=== PATIENT | female | born 1995 | race Two or more races ===

== ENCOUNTER 2021-07-20 12:31 | Inpatient (IN) | payer MEDICAID ==
[~2021-07-20] VITALS: Ht 157.5 cm; Wt 73.0 kg
[~2021-07-20 12:31] MED LIST: PREN-145 OR
[2021-07-20 13:03] LABS: Urine Bacteria MOD /hpf (None Seen); Urine Blood 3+ /uL (Negative); Urine Specific Gravity 1.014 (1.001-1.035); Urine WBC 458 /hpf (0 - 5); Urine WBC Clumps PRESENT /hpf (None Seen)
[2021-07-20] MEDS ORDERED: cefTRIAXone 1GM/50ML D5W 50 ML IV ONE ×2 (13:15→19:15)
[2021-07-20] MEDS ORDERED: MORPHINE SULFATE INJECTION 2 MG/ML SYRG IV ONE (13:15)
[2021-07-20] MEDS ORDERED: ONDANSETRON HCL 4 MG/2 ML VIAL IV ONE (13:15)
[2021-07-20 13:21] LABS: Basophils # (auto) 0.1 10 ^3/uL (0-0.2); Basophils % (auto) 0.9 % (0.0-2.0); Eosinophils # (auto) 0.1 10 ^3/uL (0-0.8); Eosinophils % (auto) 0.5 % (0.0-7.0); Hematocrit 35.3 % (36.0-46.0); Hemoglobin 11.6 g/dL (12.2-16.2); Lymphocytes # (auto) 1.3 10 ^3/uL (0.4-5.4); Lymphocytes % (auto) 11.7 % (10.0-50.0); Mean Corpuscular Hemoglobin 24.5 pg (28.0-32.0); Mean Corpuscular Volume 74.2 fL (80.0-100.0); Monocytes # (auto) 1.1 10 ^3/uL (0-1.3); Monocytes % (auto) 9.5 % (0.0-12.0); Neutrophils # (auto) 8.7 10 ^3/uL (1.6-8.6); Neutrophils % (auto) 77.4 % (37.0-80.0); Nucleated Red Blood Cells % 0.1 %; Red Blood Cells 4.76 10^6/uL (4.0-5.20); Red Cell Distribution Width 17.3 % (11.8-14.3); White Blood Cell 11.2 10^3/uL (4.4-10.8)
[2021-07-20 13:42] LABS: Potassium 3.5 mmol/L (3.5-5.1)
[2021-07-20 13:48] LABS: BUN/Creatinine Ratio 14.1; Bilirubin, Total 0.4 mg/dL (0.2-1.0); Total Protein 8.4 g/dL (6.4-8.2)
[2021-07-20] MEDS ORDERED: SODIUM CHLORIDE 0.9% 1,000 ML IV ONE (14:00)
[2021-07-20] MEDS ORDERED: ACETAMINOPHEN 500 MG TAB PO ONE (16:15)
[2021-07-20] MEDS ORDERED: MORPHINE SULFATE INJECTION 2 MG/ML SYRG IV PRN ×2 (16:30→19:15)
[2021-07-20] MEDS ORDERED: NITROGLYCERIN 0.4 MG SL TAB SL PRN ×2 (16:30→19:15)
[2021-07-20] MEDS ORDERED: LACTATED RINGER'S 1,000 ML IV ONE (16:30)
[2021-07-20] MEDS ORDERED: MORPHINE SULFATE 4 MG/ML SYR/VIAL IV PRN (19:15)
[2021-07-20] MEDS ORDERED: KETOROLAC TROMETH 30 MG/ML 1ML VIAL IV PRN (19:15)
[2021-07-20] MEDS ORDERED: ALUM & MAG HYDROX-SIMETH LIQ(MAALOX) 30 ML PO PRN (19:15)
[2021-07-20] MEDS ORDERED: ONDANSETRON HCL 4 MG/2 ML VIAL IV PRN (19:15)
[2021-07-20] MEDS ORDERED: LORazepam 0.5 MG TAB PO PRN (19:15)
[2021-07-20] MEDS ORDERED: PANTOPRAZOLE 40 MG/10 ML VIAL INJ IV ONE (19:15)
[2021-07-20 21:00] LABS: Alcohol, Urine < 3.0 mg/dL (0-10); Amphetamine Screen, Urine NEGATIVE (NEGATIVE); Barbiturate Scree,Urine NEGATIVE (NEGATIVE); Benzodiazephine Screen, Urine NEGATIVE (NEGATIVE); Cannabinoid Screen, Urine NEGATIVE (NEGATIVE); Cocaine Screen, Urine NEGATIVE (NEGATIVE); Opiate Scree,Urine NEGATIVE (NEGATIVE); Phencyclidine Screen, Urine NEGATIVE (NEGATIVE)
[2021-07-20] MEDS: SODIUM CHLORIDE 0.9% 1,000 ML IV SCH (21:08)
[2021-07-21] VITALS (7 sets, daily range): BP systolic 107–125; BP diastolic 58–79
[2021-07-21 00:30] LABS: Lactic Acid w/Reflex 3.4 mmol/L (0.4-2.0)
[2021-07-21 02:04] LABS: % Iron Saturation 3.4 % (15-50)
[2021-07-21] MEDS: HYDROcodone-ACET 5/325MG TAB PO PRN (02:39)
[2021-07-21] MEDS: ACETAMINOPHEN 325 MG TAB PO PRN ×2 (02:39→16:35)
[2021-07-21] MEDS ORDERED: dilTIAZem 120MG ER CAP PO ONE (03:15)
[2021-07-21] MEDS: SODIUM CHLORIDE 0.9% 1,000 ML IV SCH ×3 (03:29→15:47)
[2021-07-21 05:47] LABS: Basophils # (auto) 0 10 ^3/uL (0-0.2); Eosinophils # (auto) 0 10 ^3/uL (0-0.8); Monocytes # (auto) 1.2 10 ^3/uL (0-1.3)
[2021-07-21 05:50] LABS: Basophils % (auto) 0.4 % (0.0-2.0); Eosinophils % (auto) 0.5 % (0.0-7.0); Hematocrit 32.9 % (36.0-46.0); Hemoglobin 10.6 g/dL (12.2-16.2); Lymphocytes # (auto) 1.5 10 ^3/uL (0.4-5.4); Lymphocytes % (auto) 16.2 % (10.0-50.0); Mean Corpuscular Hemoglobin 24.1 pg (28.0-32.0); Mean Corpuscular Hgb Conc. 32.3 g/dL (32.0-36.0); Mean Corpuscular Volume 74.6 fL (80.0-100.0); Monocytes % (auto) 13.1 % (0.0-12.0); Neutrophils # (auto) 6.3 10 ^3/uL (1.6-8.6); Neutrophils % (auto) 69.8 % (37.0-80.0); Nucleated Red Blood Cells % 0.1 %; Red Blood Cells 4.41 10^6/uL (4.0-5.20)
[2021-07-21 06:05] LABS: Albumin 3.2 g/dL (3.4-5.0); Anion Gap 5 (5-15); Blood Urea Nitrogen 7 mg/dL (7-18); Calcium 8.2 mg/dL (8.5-10.1); Carbon Dioxide 24 mmol/L (21-32); Chloride 106 mmol/L (98-107); Glucose 97 mg/dL (74-106); Magnesium 2.1 mg/dL (1.6-2.6); Potassium 3.3 mmol/L (3.5-5.1); Sodium 135 mmol/L (136-145)
[2021-07-21 06:12] LABS: INR 1.32 (0.9-1.15); Partial Thromboplastin Time 33.3 sec (23.6-33.0)
[2021-07-21 06:14] LABS: Alanine Aminotransferase 17 U/L (13-56); Alkaline Phosphatase 87 U/L (45-117); Aspartate Aminotransferase 7 U/L (15-37); BUN/Creatinine Ratio 8.4; Bilirubin, Total 0.4 mg/dL (0.2-1.0); GFR African American 105 mL/min; GFR Non-African American 87 mL/min; Phosphorus 2.4 mg/dL (2.5-4.90); Total Protein 6.8 g/dL (6.4-8.2)
[2021-07-21] MEDS: CEFTRIAXONE SODIUM 2 GM in D5W 5% 50 ML IV SCH (10:26)
[2021-07-21] MEDS: PANTOPRAZOLE 40 MG/10 ML VIAL INJ IV SCH (10:26)
[2021-07-21] MEDS: ENOXAPARIN SOD 40 MG/0.4 ML SYRINGE SC SCH (10:27)
[2021-07-21] MEDS ORDERED: POTASSIUM CHL 20 Meq TABLET PO ONE (12:30)
[2021-07-21] MEDS: TAMSULOSIN HYDROCHLORIDE 0.4 MG CAP PO SCH (18:36)
[2021-07-22] MEDS: SODIUM CHLORIDE 0.9% 1,000 ML IV SCH ×3 (00:45→17:39)
[2021-07-22 05:00] VITALS: BP 125/74
[2021-07-22 06:15] LABS: Basophils # (auto) 0.1 10 ^3/uL (0-0.2); Eosinophils # (auto) 0.2 10 ^3/uL (0-0.8); Monocytes # (auto) 1.1 10 ^3/uL (0-1.3); Monocytes % (auto) 13.6 % (0.0-12.0); Neutrophils # (auto) 4.9 10 ^3/uL (1.6-8.6); Red Cell Distribution Width 16.9 % (11.8-14.3)
[2021-07-22 06:16] LABS: Basophils % (auto) 0.8 % (0.0-2.0); Hematocrit 34.4 % (36.0-46.0); Hemoglobin 11.3 g/dL (12.2-16.2); Lymphocytes # (auto) 1.7 10 ^3/uL (0.4-5.4); Lymphocytes % (auto) 21.7 % (10.0-50.0); Mean Corpuscular Hemoglobin 24.5 pg (28.0-32.0); Mean Corpuscular Hgb Conc. 32.7 g/dL (32.0-36.0); Mean Corpuscular Volume 74.9 fL (80.0-100.0); Neutrophils % (auto) 60.9 % (37.0-80.0); Nucleated Red Blood Cells % 0.2 %
[2021-07-22 06:30] LABS: INR 1.21 (0.9-1.15); Partial Thromboplastin Time 31.7 sec (23.6-33.0)
[2021-07-22 06:35] LABS: BUN/Creatinine Ratio 11.5; Calcium 8.8 mg/dL (8.5-10.1); Magnesium 2.3 mg/dL (1.6-2.6); Potassium 3.6 mmol/L (3.5-5.1)
[2021-07-22] MEDS ORDERED: IODIXANOL 320MG/ML 100ML BTL IV ONE (09:26)
[2021-07-22] MEDS ORDERED: LIDOCAINE 2%HCL (LOCAL ANESTH.) INJ 20ML MDV ONE ×2 (09:26→10:20)
[2021-07-22] MEDS ORDERED: MIDAZOLAM HCL 2MG/2ML 2ml VIAL (1mg/ml) ONE (09:27)
[2021-07-22] MEDS ORDERED: fentaNYL CITRATE 100 MCG/2 ML VL ONE (09:27)
[2021-07-22] MEDS: PANTOPRAZOLE 40 MG/10 ML VIAL INJ IV SCH (09:57)
[2021-07-22] MEDS: CEFTRIAXONE SODIUM 2 GM in D5W 5% 50 ML IV SCH (09:57)
[2021-07-22] MEDS: ENOXAPARIN SOD 40 MG/0.4 ML SYRINGE SC SCH (09:57)
[2021-07-22] MEDS ORDERED: diphenhdrAMINE HCL 50 MG/1 ML VL ONE (10:31)
[2021-07-22] MEDS ORDERED: HYDROmorphone HCL 2 MG/ML VL ONE (10:43)
[2021-07-22 13:00] VITALS: BP 124/82
[2021-07-22] MEDS: HYDROcodone-ACET 5/325MG TAB PO PRN (14:10)
[2021-07-22 17:00] VITALS: BP 126/74
[2021-07-22] MEDS: TAMSULOSIN HYDROCHLORIDE 0.4 MG CAP PO SCH (18:02)
[2021-07-22 20:00] VITALS: BP 126/64
[2021-07-22] MEDS: MORPHINE SULFATE INJECTION 2 MG/ML SYRG IV PRN (21:43)
[2021-07-22] MEDS: ACETAMINOPHEN 325 MG TAB PO PRN (21:43)
[2021-07-22 22:00] VITALS: BP 126/64
[2021-07-23] MEDS: MORPHINE SULFATE INJECTION 2 MG/ML SYRG IV PRN ×2 (04:59→20:27)
[2021-07-23 05:00] VITALS: BP 141/94
[2021-07-23] MEDS: ACETAMINOPHEN 325 MG TAB PO PRN (05:48)
[2021-07-23 05:53] LABS: Basophils # (auto) 0 10 ^3/uL (0-0.2); Basophils % (auto) 0.4 % (0.0-2.0); Eosinophils # (auto) 0 10 ^3/uL (0-0.8); Lymphocytes # (auto) 1.4 10 ^3/uL (0.4-5.4); Neutrophils # (auto) 6.5 10 ^3/uL (1.6-8.6); Nucleated Red Blood Cells % 0.1 %
[2021-07-23 05:57] LABS: Eosinophils % (auto) 0.4 % (0.0-7.0); Hematocrit 34.8 % (36.0-46.0); Hemoglobin 11.3 g/dL (12.2-16.2); Lymphocytes % (auto) 15.6 % (10.0-50.0); Mean Corpuscular Hemoglobin 24.6 pg (28.0-32.0); Mean Corpuscular Hgb Conc. 32.6 g/dL (32.0-36.0); Mean Corpuscular Volume 75.5 fL (80.0-100.0); Monocytes # (auto) 1.2 10 ^3/uL (0-1.3); Monocytes % (auto) 13.3 % (0.0-12.0); Neutrophils % (auto) 70.3 % (37.0-80.0); Red Blood Cells 4.61 10^6/uL (4.0-5.20); Red Cell Distribution Width 16.8 % (11.8-14.3); White Blood Cell 9.3 10^3/uL (4.4-10.8)
[2021-07-23 06:16] LABS: Potassium 3.4 mmol/L (3.5-5.1)
[2021-07-23 06:21] LABS: BUN/Creatinine Ratio 11.1; Calcium 8.9 mg/dL (8.5-10.1); Magnesium 2.1 mg/dL (1.6-2.6)
[2021-07-23 09:00] VITALS: BP 127/76
[2021-07-23] MEDS: ENOXAPARIN SOD 40 MG/0.4 ML SYRINGE SC SCH (10:35)
[2021-07-23] MEDS: CEFTRIAXONE SODIUM 2 GM in D5W 5% 50 ML IV SCH (10:36)
[2021-07-23] MEDS: PANTOPRAZOLE 40 MG/10 ML VIAL INJ IV SCH (10:36)
[2021-07-23] MEDS: SODIUM CHLORIDE 0.9% 1,000 ML IV SCH ×3 (10:37→23:50)
[2021-07-23] MEDS ORDERED: PIPERACILLIN-TAZOB 3.375GM 100 ML IV SCH (12:00)
[2021-07-23] MEDS ORDERED: POTASSIUM CHL 20 Meq TABLET PO ONE (12:00)
[2021-07-23] MEDS: HYDROcodone-ACET 5/325MG TAB PO PRN ×2 (12:09→16:55)
[2021-07-23 12:49] VITALS: BP 127/83
[2021-07-23 16:54] VITALS: BP 132/85
[2021-07-23] MEDS: TAMSULOSIN HYDROCHLORIDE 0.4 MG CAP PO SCH (18:27)
[2021-07-23] MEDS: DOCUSATE SOD 100 MG CAP PO PRN (18:37)
[2021-07-23 20:00] VITALS: BP 130/80
[2021-07-23] MEDS: PIPERACILLIN-TAZOB 3.375GM 100 ML IV SCH (21:33)
[2021-07-23 22:00] VITALS: BP 141/81
[2021-07-24] MEDS ORDERED: TEMAZEPAM 15 MG CAP PO ONE (00:45)
[2021-07-24] MEDS: MORPHINE SULFATE INJECTION 2 MG/ML SYRG IV PRN (00:57)
[2021-07-24] MEDS: PIPERACILLIN-TAZOB 3.375GM 100 ML IV SCH ×4 (02:59→22:00)
[2021-07-24 05:00] VITALS: BP 126/79
[2021-07-24 05:56] LABS: Basophils # (auto) 0 10 ^3/uL (0-0.2); Basophils % (auto) 0.7 % (0.0-2.0); Eosinophils # (auto) 0.2 10 ^3/uL (0-0.8); Hemoglobin 10.7 g/dL (12.2-16.2); Mean Corpuscular Hemoglobin 24.1 pg (28.0-32.0); Neutrophils # (auto) 4.1 10 ^3/uL (1.6-8.6); White Blood Cell 6.9 10^3/uL (4.4-10.8)
[2021-07-24 05:58] LABS: Eosinophils % (auto) 2.6 % (0.0-7.0); Lymphocytes # (auto) 1.6 10 ^3/uL (0.4-5.4); Mean Corpuscular Hgb Conc. 32.5 g/dL (32.0-36.0); Mean Corpuscular Volume 74.3 fL (80.0-100.0); Monocytes % (auto) 14.9 % (0.0-12.0); Neutrophils % (auto) 58.8 % (37.0-80.0); Red Blood Cells 4.44 10^6/uL (4.0-5.20); Red Cell Distribution Width 16.9 % (11.8-14.3)
[2021-07-24 06:19] LABS: BUN/Creatinine Ratio 11.1; Calcium 8.4 mg/dL (8.5-10.1); Potassium 3.8 mmol/L (3.5-5.1)
[2021-07-24] MEDS: HYDROcodone-ACET 5/325MG TAB PO PRN ×2 (06:52→15:55)
[2021-07-24] MEDS: SODIUM CHLORIDE 0.9% 1,000 ML IV SCH ×2 (08:00→14:30)
[2021-07-24 08:58] VITALS: BP 125/76
[2021-07-24] MEDS: PANTOPRAZOLE 40 MG/10 ML VIAL INJ IV SCH (10:08)
[2021-07-24] MEDS: ENOXAPARIN SOD 40 MG/0.4 ML SYRINGE SC SCH (10:09)
[2021-07-24 12:56] VITALS: BP 126/84
[2021-07-24] MEDS: DOCUSATE SOD 100 MG CAP PO PRN (15:55)
[2021-07-24 16:12] LABS: Urine Bacteria NONE SEEN /hpf (None Seen); Urine Blood Negative /uL (Negative); Urine Specific Gravity 1.013 (1.001-1.035); Urine WBC 18 /hpf (0 - 5)
[2021-07-24 16:55] VITALS: BP 137/81
[2021-07-24] MEDS: TAMSULOSIN HYDROCHLORIDE 0.4 MG CAP PO SCH (18:20)
[2021-07-24 20:00] VITALS: BP 123/78
[2021-07-24 21:33] VITALS: BP 123/78
[2021-07-25] MEDS: HYDROcodone-ACET 5/325MG TAB PO PRN ×3 (00:36→17:37)
[2021-07-25] MEDS: PIPERACILLIN-TAZOB 3.375GM 100 ML IV SCH ×4 (03:00→21:01)
[2021-07-25] MEDS: SODIUM CHLORIDE 0.9% 1,000 ML IV SCH ×2 (03:00→19:06)
[2021-07-25 04:54] VITALS: BP 115/68
[2021-07-25 06:15] LABS: Potassium 3.3 mmol/L (3.5-5.1)
[2021-07-25 06:17] LABS: Magnesium 2.3 mg/dL (1.6-2.6)
[2021-07-25 06:24] LABS: INR 1.21 (0.9-1.15)
[2021-07-25 07:20] LABS: Hematocrit 35.5 % (36.0-46.0); Hemoglobin 11.5 g/dL (12.2-16.2)
[2021-07-25 08:51] VITALS: BP 121/75
[2021-07-25] MEDS: ENOXAPARIN SOD 40 MG/0.4 ML SYRINGE SC SCH (10:14)
[2021-07-25] MEDS: PANTOPRAZOLE 40 MG/10 ML VIAL INJ IV SCH (10:14)
[2021-07-25 13:08] VITALS: BP 111/84
[2021-07-25] MEDS ORDERED: POTASSIUM CHL 20 Meq TABLET PO ONE (14:45)
[2021-07-25 17:17] VITALS: BP 121/87
[2021-07-25] MEDS: TAMSULOSIN HYDROCHLORIDE 0.4 MG CAP PO SCH (17:37)
[2021-07-25 22:00] VITALS: BP 112/73
[2021-07-26] MEDS: HYDROcodone-ACET 5/325MG TAB PO PRN ×4 (00:39→20:41)
[2021-07-26] MEDS: PIPERACILLIN-TAZOB 3.375GM 100 ML IV SCH ×4 (02:41→20:41)
[2021-07-26 05:00] VITALS: BP 114/80
[2021-07-26] MEDS: ENOXAPARIN SOD 40 MG/0.4 ML SYRINGE SC SCH (08:38)
[2021-07-26] MEDS: PANTOPRAZOLE 40 MG/10 ML VIAL INJ IV SCH (08:38)
[2021-07-26] MEDS: SODIUM CHLORIDE 0.9% 1,000 ML IV SCH (08:38)
[2021-07-26 09:30] VITALS: BP 107/71
[2021-07-26] MEDS ORDERED: POTASSIUM CHL 20 Meq TABLET PO ONE (12:45)
[2021-07-26 13:30] VITALS: BP 109/70
[2021-07-26] MEDS: DOCUSATE SOD 100 MG CAP PO PRN (14:55)
[2021-07-26 16:38] VITALS: BP 118/69
[2021-07-26] MEDS: TAMSULOSIN HYDROCHLORIDE 0.4 MG CAP PO SCH (17:20)
[2021-07-26 22:00] VITALS: BP 115/72
[2021-07-26] MEDS: MORPHINE SULFATE INJECTION 2 MG/ML SYRG IV PRN (22:02)
[2021-07-27] MEDS: PIPERACILLIN-TAZOB 3.375GM 100 ML IV SCH ×4 (02:46→20:38)
[2021-07-27 05:00] VITALS: BP 112/70
[2021-07-27] MEDS: SODIUM CHLORIDE 0.9% 1,000 ML IV SCH ×2 (06:17→14:00)
[2021-07-27 08:59] LABS: Calcium 9.5 mg/dL (8.5-10.1); Potassium 4.4 mmol/L (3.5-5.1)
[2021-07-27 09:00] VITALS: BP 119/82
[2021-07-27 09:01] LABS: BUN/Creatinine Ratio 9.5
[2021-07-27 09:05] LABS: Basophils # (auto) 0.1 10 ^3/uL (0-0.2); Eosinophils # (auto) 0.3 10 ^3/uL (0-0.8); Lymphocytes # (auto) 1.5 10 ^3/uL (0.4-5.4); Lymphocytes % (auto) 18.7 % (10.0-50.0); Monocytes # (auto) 0.6 10 ^3/uL (0-1.3); Neutrophils # (auto) 5.4 10 ^3/uL (1.6-8.6); Nucleated Red Blood Cells % 0.2 %
[2021-07-27 09:08] LABS: Basophils % (auto) 0.7 % (0.0-2.0); Eosinophils % (auto) 3.9 % (0.0-7.0); Hematocrit 35.1 % (36.0-46.0); Hemoglobin 11.5 g/dL (12.2-16.2); Mean Corpuscular Hemoglobin 24.4 pg (28.0-32.0); Mean Corpuscular Hgb Conc. 32.8 g/dL (32.0-36.0); Mean Corpuscular Volume 74.5 fL (80.0-100.0); Neutrophils % (auto) 68.7 % (37.0-80.0); Red Blood Cells 4.71 10^6/uL (4.0-5.20); Red Cell Distribution Width 16.7 % (11.8-14.3); White Blood Cell 7.9 10^3/uL (4.4-10.8)
[2021-07-27] MEDS: PANTOPRAZOLE 40 MG/10 ML VIAL INJ IV SCH (10:28)
[2021-07-27] MEDS: ENOXAPARIN SOD 40 MG/0.4 ML SYRINGE SC SCH (10:28)
[2021-07-27] MEDS: DOCUSATE SOD 100 MG CAP PO PRN (10:29)
[2021-07-27 13:00] VITALS: BP 111/78
[2021-07-27] MEDS: LACTULOSE 20Gm/30ML SOLN PO PRN (14:42)
[2021-07-27 17:00] VITALS: BP 116/79
[2021-07-27] MEDS: TAMSULOSIN HYDROCHLORIDE 0.4 MG CAP PO SCH (18:30)
[2021-07-27 22:00] VITALS: BP 130/79
[2021-07-27] MEDS ORDERED: LACTULOSE 20Gm/30ML SOLN PO SCH (22:00)
[2021-07-27] MEDS: HYDROcodone-ACET 5/325MG TAB PO PRN (22:16)
[2021-07-28] MEDS: PIPERACILLIN-TAZOB 3.375GM 100 ML IV SCH ×3 (03:36→15:00)
[2021-07-28 05:00] VITALS: BP 115/74
[2021-07-28] MEDS: SODIUM CHLORIDE 0.9% 1,000 ML IV SCH (06:43)
[2021-07-28] MEDS: LACTULOSE 20Gm/30ML SOLN PO PRN (08:51)
[2021-07-28] MEDS: PANTOPRAZOLE 40 MG/10 ML VIAL INJ IV SCH (08:51)
[2021-07-28] MEDS: ENOXAPARIN SOD 40 MG/0.4 ML SYRINGE SC SCH (08:51)
[2021-07-28 09:00] VITALS: BP 113/69
[2021-07-28] MEDS ORDERED: TAM04C PO (12:11)
[2021-07-28] MEDS ORDERED: CIPR500T4 PO (12:11)
[2021-07-28 14:38] VITALS: BP 115/81
== END 2021-07-28 15:08 | disposition home or self-care (01) | DRG 872 ==
LOC: ER 12:31 → OVERFLOW 16:27 → WEST WING 22:21
PROVIDERS: ADMIT Hospitalist; ATTEND Internal Medicine
PROC: 0T9130Z Drainage of Left Kidney with Drainage Device, Percutaneous Approach (ICD-10-PCS; principal; 2021-07-22)
PROC: BT1F1ZZ Fluoroscopy of Left Kidney, Ureter and Bladder using Low Osmolar Contrast (ICD-10-PCS; 2021-07-22)
PROC: BT42ZZZ Ultrasonography of Left Kidney (ICD-10-PCS; 2021-07-22)
DX: A41.9 Sepsis, unspecified organism (principal); N13.6 Pyonephrosis; D64.9 Anemia, unspecified; E87.6 Hypokalemia; R00.0 Tachycardia, unspecified; R65.20 Severe sepsis without septic shock; Z93.3 Colostomy status; Z97.5 Presence of (intrauterine) contraceptive device; Z87.440 Personal history of urinary (tract) infections
CPT/HCPCS: 36415; 50432; 71045; 74176; 74425; 76942; 80048; 80053; 80307; 81001; 83036; 83540; 83550; 83605; 83690; 83735; 83880; 84100; 84132; 84443; 84484; 84702; 85014; 85018; 85025; 85610; 85730; 87040; 87086; 87426; 93005; 96365; 96375; 99152; 99153; C1729; C9113; G0378; J0696; J2250; J2405; J2543; J7060; Q9967

== ENCOUNTER 2021-10-07 22:17 | Emergency (ER) | payer MEDICAID ==
[~2021-10-07] VITALS: Ht 157.5 cm; Wt 68.5 kg
[~2021-10-07 22:17] MED LIST changes: +CIPR500T4 PO; +TAM04C PO
[2021-10-07 23:58] LABS: Eosinophils # (auto) 0.1 10 ^3/uL (0-0.8); Lymphocytes # (auto) 1.2 10 ^3/uL (0.4-5.4); Mean Corpuscular Hgb Conc. 32.3 g/dL (32.0-36.0); Neutrophils # (auto) 6.2 10 ^3/uL (1.6-8.6)
[2021-10-08 00:01] LABS: Basophils # (auto) 0 10 ^3/uL (0-0.2); Basophils % (auto) 0.5 % (0.0-2.0); Eosinophils % (auto) 1.3 % (0.0-7.0); Hemoglobin 11.6 g/dL (12.2-16.2); Lymphocytes % (auto) 13.7 % (10.0-50.0); Mean Corpuscular Hemoglobin 23.2 pg (28.0-32.0); Mean Corpuscular Volume 71.8 fL (80.0-100.0); Monocytes % (auto) 11.4 % (0.0-12.0); Neutrophils % (auto) 73.1 % (37.0-80.0); Red Blood Cells 5.01 10^6/uL (4.0-5.20); Red Cell Distribution Width 16.4 % (11.8-14.3); White Blood Cell 8.5 10^3/uL (4.4-10.8)
[2021-10-08 00:26] LABS: Albumin 4.1 g/dL (3.4-5.0); BUN/Creatinine Ratio 17.7; Calcium 8.9 mg/dL (8.5-10.1); Potassium 4.3 mmol/L (3.5-5.1)
[2021-10-08 00:29] LABS: Bilirubin, Total 0.3 mg/dL (0.2-1.0); Total Protein 7.9 g/dL (6.4-8.2)
[2021-10-08 06:08] VITALS: BP 127/89
== END 2021-10-08 06:10 | disposition home or self-care (01) ==
LOC: ER 22:20
DX: T83.032A Leakage of nephrostomy catheter, initial encounter (principal)
CPT/HCPCS: 36415; 74176; 80053; 83605; 85025; 87040

== ENCOUNTER 2021-10-17 16:55 | Inpatient (IN) | payer MEDICAID, OTHER ==
[~2021-10-17] VITALS: Ht 160 cm; Wt 77.7 kg
[2021-10-18] MEDS ORDERED: NITROGLYCERIN 0.4 MG SL TAB SL PRN (01:30)
[2021-10-18] MEDS ORDERED: ACETAMINOPHEN 325 MG TAB PO PRN (01:30)
[2021-10-18] MEDS ORDERED: MORPHINE SULFATE INJECTION 2 MG/ML SYRG IV PRN (01:30)
[2021-10-18 03:57] LABS: Calcium 8.8 mg/dL (8.5-10.1); Potassium 4.3 mmol/L (3.5-5.1)
[2021-10-18 03:59] LABS: Basophils # (auto) 0.1 10 ^3/uL (0-0.2); Basophils % (auto) 0.8 % (0.0-2.0); Eosinophils # (auto) 0.3 10 ^3/uL (0-0.8); Lymphocytes # (auto) 2.1 10 ^3/uL (0.4-5.4); Mean Corpuscular Volume 71.5 fL (80.0-100.0); Monocytes # (auto) 1.1 10 ^3/uL (0-1.3); White Blood Cell 8.2 10^3/uL (4.4-10.8)
[2021-10-18] MEDS ORDERED: TAMSULOSIN HYDROCHLORIDE 0.4 MG CAP PO ONE (04:00)
[2021-10-18 04:03] LABS: Albumin 3.8 g/dL (3.4-5.0); Bilirubin, Total 0.4 mg/dL (0.2-1.0); Total Protein 7.6 g/dL (6.4-8.2)
[2021-10-18 04:04] LABS: Eosinophils % (auto) 3.3 % (0.0-7.0); Hematocrit 33.5 % (36.0-46.0); Hemoglobin 10.7 g/dL (12.2-16.2); Lymphocytes % (auto) 25.3 % (10.0-50.0); Mean Corpuscular Hemoglobin 22.7 pg (28.0-32.0); Mean Corpuscular Hgb Conc. 31.8 g/dL (32.0-36.0); Monocytes % (auto) 13.1 % (0.0-12.0); Neutrophils # (auto) 4.7 10 ^3/uL (1.6-8.6); Neutrophils % (auto) 57.5 % (37.0-80.0); Red Blood Cells 4.69 10^6/uL (4.0-5.20); Red Cell Distribution Width 16.3 % (11.8-14.3)
[2021-10-18] MEDS: SODIUM CHLOR 0.9% PF (SALINE LOCK) 10ML VIAL/SYR IV SCH ×3 (08:00→23:06)
[2021-10-18 13:20] LABS: Urine Bacteria MOD /hpf (None Seen); Urine Blood 3+ /uL (Negative); Urine Mucus FEW (None Seen); Urine Specific Gravity 1.013 (1.001-1.035); Urine WBC 488 /hpf (0 - 5); Urine WBC Clumps PRESENT /hpf (None Seen)
[2021-10-18] MEDS: TAMSULOSIN HYDROCHLORIDE 0.4 MG CAP PO SCH (18:29)
[2021-10-18 20:51] VITALS: BP 103/64
[2021-10-18 21:22] VITALS: BP 103/64
[2021-10-18 22:00] VITALS: BP 112/76
[2021-10-18] MEDS: SOD CHL 0.45% 1,000 ML IV SCH (23:06)
[2021-10-19 05:17] VITALS: BP 107/71
[2021-10-19] MEDS: SODIUM CHLOR 0.9% PF (SALINE LOCK) 10ML VIAL/SYR IV SCH ×2 (06:02→13:03)
[2021-10-19 07:47] LABS: Basophils # (auto) 0 10 ^3/uL (0-0.2); Basophils % (auto) 0.7 % (0.0-2.0); Eosinophils # (auto) 0.3 10 ^3/uL (0-0.8); Eosinophils % (auto) 5.1 % (0.0-7.0); Hematocrit 32.8 % (36.0-46.0); Hemoglobin 10.6 g/dL (12.2-16.2); Lymphocytes # (auto) 1.7 10 ^3/uL (0.4-5.4); Lymphocytes % (auto) 31.1 % (10.0-50.0); Mean Corpuscular Hgb Conc. 32.4 g/dL (32.0-36.0); Mean Corpuscular Volume 71.1 fL (80.0-100.0); Monocytes # (auto) 0.6 10 ^3/uL (0-1.3); Monocytes % (auto) 11.6 % (0.0-12.0); Neutrophils # (auto) 2.7 10 ^3/uL (1.6-8.6); Neutrophils % (auto) 51.5 % (37.0-80.0); Nucleated Red Blood Cells % 0.1 %; Red Blood Cells 4.61 10^6/uL (4.0-5.20); Red Cell Distribution Width 15.7 % (11.8-14.3); White Blood Cell 5.3 10^3/uL (4.4-10.8)
[2021-10-19 07:53] LABS: INR 1.21 (0.9-1.15); Partial Thromboplastin Time 30.8 sec (23.6-33.0)
[2021-10-19 07:56] LABS: Albumin 3.4 g/dL (3.4-5.0); Calcium 8.9 mg/dL (8.5-10.1); Potassium 4.1 mmol/L (3.5-5.1)
[2021-10-19 07:58] LABS: Magnesium 2.1 mg/dL (1.6-2.6)
[2021-10-19 07:59] LABS: BUN/Creatinine Ratio 16.9
[2021-10-19 08:00] LABS: Phosphorus 3.5 mg/dL (2.5-4.90)
[2021-10-19 08:02] LABS: Bilirubin, Total 0.3 mg/dL (0.2-1.0); Total Protein 7.2 g/dL (6.4-8.2)
[2021-10-19 08:31] VITALS: BP 99/70
[2021-10-19] MEDS: SOD CHL 0.45% 1,000 ML IV SCH (08:45)
[2021-10-19 12:21] VITALS: BP 104/69
[2021-10-19] MEDS ORDERED: cefTRIAXone 1GM/50ML D5W 50 ML IV ONE (15:30)
[2021-10-19 17:00] VITALS: BP 106/72
[2021-10-19] MEDS: TAMSULOSIN HYDROCHLORIDE 0.4 MG CAP PO SCH (17:05)
[2021-10-19 22:00] VITALS: BP 114/84
[2021-10-20] VITALS (9 sets, daily range): BP systolic 105–131; BP diastolic 62–93
[2021-10-20 06:59] LABS: Eosinophils # (auto) 0.3 10 ^3/uL (0-0.8); Monocytes # (auto) 0.6 10 ^3/uL (0-1.3); Monocytes % (auto) 11.1 % (0.0-12.0); White Blood Cell 5.1 10^3/uL (4.4-10.8)
[2021-10-20 07:01] LABS: Basophils # (auto) 0 10 ^3/uL (0-0.2); Basophils % (auto) 0.8 % (0.0-2.0); Eosinophils % (auto) 5.3 % (0.0-7.0); Hematocrit 34.8 % (36.0-46.0); Hemoglobin 11.1 g/dL (12.2-16.2); Lymphocytes # (auto) 1.8 10 ^3/uL (0.4-5.4); Lymphocytes % (auto) 34.9 % (10.0-50.0); Mean Corpuscular Hemoglobin 22.6 pg (28.0-32.0); Mean Corpuscular Volume 70.8 fL (80.0-100.0); Neutrophils # (auto) 2.4 10 ^3/uL (1.6-8.6); Neutrophils % (auto) 47.9 % (37.0-80.0); Nucleated Red Blood Cells % 0.2 %; Red Blood Cells 4.91 10^6/uL (4.0-5.20)
[2021-10-20 07:16] LABS: Albumin 3.4 g/dL (3.4-5.0); BUN/Creatinine Ratio 15.3; Calcium 9.3 mg/dL (8.5-10.1); Magnesium 2.4 mg/dL (1.6-2.6); Potassium 4.4 mmol/L (3.5-5.1)
[2021-10-20 07:18] LABS: Bilirubin, Total 0.2 mg/dL (0.2-1.0); Phosphorus 3.8 mg/dL (2.5-4.90); Total Protein 7.7 g/dL (6.4-8.2)
[2021-10-20 07:24] LABS: INR 1.18 (0.9-1.15); Partial Thromboplastin Time 30.1 sec (23.6-33.0)
[2021-10-20] MEDS: cefTRIAXone 1GM/50ML D5W 50 ML IV SCH (09:19)
[2021-10-20] MEDS ORDERED: ENOXAPARIN SOD 40 MG/0.4 ML SYRINGE SC SCH (10:00)
[2021-10-20] MEDS ORDERED: MIDAZOLAM HCL 2MG/2ML 2ml VIAL (1mg/ml) ONE (14:35)
[2021-10-20] MEDS ORDERED: fentaNYL CITRATE 100 MCG/2 ML VL ONE (14:35)
[2021-10-20] MEDS ORDERED: IODIXANOL 320MG/ML 100ML BTL IV ONE (14:41)
[2021-10-20] MEDS ORDERED: LIDOCAINE 2%HCL (LOCAL ANESTH.) INJ 20ML MDV ONE (14:41)
[2021-10-20] MEDS ORDERED: HYDROmorphone HCL 2 MG/ML VL ONE (15:42)
[2021-10-20] MEDS: HYDROcodone-ACET 5/325MG TAB PO PRN ×2 (17:22→21:23)
[2021-10-21] MEDS: HYDROcodone-ACET 5/325MG TAB PO PRN ×4 (01:20→16:40)
[2021-10-21 05:00] VITALS: BP 118/70
[2021-10-21] MEDS: ONDANSETRON HCL 4 MG/2 ML VIAL IV PRN ×2 (05:45→10:47)
[2021-10-21] MEDS: cefTRIAXone 1GM/50ML D5W 50 ML IV SCH (10:47)
[2021-10-21 10:59] VITALS: BP 116/68
[2021-10-21 13:00] VITALS: BP 121/68
== END 2021-10-21 18:20 | disposition home or self-care (01) | DRG 465 ==
LOC: ER 17:17 → OVERFLOW 10-18 01:25 → CENTRAL 10-18 19:47
PROVIDERS: ADMIT Nurse Practitioner Family; ATTEND Internal Medicine
PROC: 0T9130Z Drainage of Left Kidney with Drainage Device, Percutaneous Approach (ICD-10-PCS; principal; 2021-10-21)
PROC: BT1F1ZZ Fluoroscopy of Left Kidney, Ureter and Bladder using Low Osmolar Contrast (ICD-10-PCS; 2021-10-21)
PROC: BT42ZZZ Ultrasonography of Left Kidney (ICD-10-PCS; 2021-10-21)
DX: N13.2 Hydronephrosis with renal and ureteral calculous obstruction (principal); E66.9 Obesity, unspecified; N18.2 Chronic kidney disease, stage 2 (mild); Z87.442 Personal history of urinary calculi; Z68.30 Body mass index [BMI] 30.0-30.9, adult; Z20.822 Contact with and (suspected) exposure to COVID-19
CPT/HCPCS: 36415; 50432; 74176; 74425; 76942; 80053; 81001; 83735; 83880; 84100; 84702; 85025; 85379; 85610; 85730; 87426; 96360; 99152; 99153; C1729; G0378; J0696; J2250; J2405; Q9967